=== PATIENT | female | born 1945 | race Caucasian/White ===

== ENCOUNTER 2019-10-17 14:15 | Inpatient (IN) | payer MEDICARE, MEDICAID ==
--- OUTSIDE RECORDS SUMMARY | 2019-10-17 14:32 | XMS REPORT | Continuity of Care Document ---
:1945 External Reference #:[id number] Author Name Abdi Irby D.O. Address [address] [place] [id number] Care Team Providers Name Role Phone HCP given Care Team Information [employer]ne[employer] Unavailable Problems Active Problems Provider Date Anxiety state Abdi Irby D.O. Onset: 01/20/2016 Recurrent major depressive episodes Abdi Irby D.O. Onset: 01/20/2016 Essential hypertension Abdi Irby D.O. Onset: 01/20/2016 Fibromyalgia Abdi Irby D.O. Onset: 01/20/2016 Vitamin D deficiency Abdi Irby D.O. Onset: 01/27/2016 Magnesium deficiency Abdi Irby D.O. Onset: 01/27/2016 Chronic rhinitis Abdi Irby D.O. Onset: 01/27/2016 Chronic allergic conjunctivitis Abdi Irby D.O. Onset: 04/28/2016 Chest pain Abdi Irby D.O. Onset: 06/30/2016 Pain in forearm Abdi Irby D.O. Onset: 10/01/2018 Social History Type Date Description Comments Sex Unknown ETOH Use Never used alcohol Recreational Drug Use Denies Drug Use Tobacco Use Start: Unknown Patient has never Excessive second smoked hand smoker in the past. Smoking Status Reviewed: 10/01/19 Patient has never Excessive second smoked hand smoker in the past. Exercise Type/Frequency Exercises rarely Sun Exposure Does not use sunscreen Seat Belt/Car Seat Seat Belt Use - Yes Allergies, Adverse Reactions, Alerts Active Allergies Reaction Severity Comments Date Tetracycline 01/20/2016 Medications Active Medications SIG Qnty Indications Ordering Date Provider Abilify take one tablet by 30tabs F33.9 Abdi Irby, 10/01/2019 2mg Tablets mouth at bedtime D.O. Multivitamin Adults 1 by mouth every Unknown 05/13/2019 day Tablets Duloxetine HCL 1 by mouth every 90caps Z00.01 Abdi Irby, 05/13/2019 30mg day in addition to D.O. Caps DR Ivey 60mg tab Aleve 1-3 tabs daily prn Unknown 05/12/2019 220mg Tablets [place] apply 1 application 45gm L71.9 Abdi Irby, 04/12/2019 0.75% Gel topically to D.O. affected area 2 times per day for rosacea Duloxetine HCL take one capsule by 90caps Abdi Irby, 04/25/2016 60mg mouth daily in D.O. Caps DR Ivey addition to 30mg History Medications Trazodone HCL take 1 tablet by 90tabs F33.9 Abdi Irby, 08/19/2019 - 50mg mouth daily at D.O. 09/18/2019 Tablets bedtime for trouble sleeping Abilify take one tablet 30tabs Abdi Irby, 07/19/2019 - 2mg Tablets by mouth at D.O. 08/18/2019 bedtime Mirtazapine 1 by mouth every 90tabs Abdi Irby, 06/17/2019 - 7.5mg night for sleep D.O. 07/19/2019 Tablets and anxiety Medications Administered in Office Medication SIG Qnty Indications Ordering Provider Date B12 Injection Abdi Irby D.O. 06/29/2018 Injection SC/Im Injections Abdi Irby D.OAysha 06/29/2018 Injection Immunizations CPT Code Status Date Vaccine Lot # [id number] Given 05/13/2019 Influenza Vaccine, Inactivated, Subunit, [id number] Adjuvanted, For Intrmusc 36351 Given 05/02/2018 Influenza Vaccine Split Virus Preservative Free Im [id number] Use (hi-dose) 44324 Given 06/22/2017 Influenza Virus Vaccine, Quadrivalent, Split, [id number] Preservative Free 43678 Given 08/16/2016 Influenza Virus Vaccine, Quadrivalent, Split, [id number] Preservative Free Vital Signs Date Vital Result Comment 10/01/2019 4:51pm BP Systolic 156 mmHg BP Diastolic 84 mmHg Weight 157.00 lb 09/19/2019 4:05pm BP Systolic 142 mmHg BP Diastolic 82 mmHg Height 63 inches 5'3" Weight 158.00 lb BMI (Body Mass Index) 28.0 kg/m2 Results Test Acquired Date Facility Test Result H/L Range Note Ua Inhouse 09/19/2019 In House Ua Glucose - 1 Ua Bilirubin - Ua Ketones - Ua Specific [place] 1.005 Ua Blood - Ua PH 6.0 Ua Protein - Ua Urobilinogen - Ua Nitrite - Ua Leukocytes - Urine Culture And 08/19/2019 [facility] Urine Culture SEE RESULT BELOW 2 Sensitivities [phone] Urine Micro Inhouse 08/19/2019 In House Ua WBC 0-2 3 Ua Specific [place] 1.005 Ua PH 5.0 Ua Leukocytes trace CBC Auto Diff 08/14/2019 [facility] White Blood 4.4 10^3/uL Normal 3.5-10.8 [phone] Count Red Blood Count 4.60 10^6/uL Normal 3.70-4.87 Hemoglobin 14.1 g/dL Normal 12.0-16.0 Hematocrit 41 % Normal 35-47 Mean Corpuscular Volume 89 fL Normal 80-97 Mean Corpuscular Hemoglobin 31 pg Normal 27-31 Mean Corpuscular HGB Conc 35 g/dL Normal 31-36 Red Cell Distribution Width 13 % Normal 10-15 Platelet Count 200 10^3/uL Normal 150-450 Mean Platelet Volume 8.0 fL Normal 7.4-10.4 Abs Neutrophils 2.8 10^3/uL Normal 1.5-7.7 Abs Lymphocytes 1.0 10^3/uL Normal 1.0-4.8 Abs Monocytes 0.4 10^3/uL Normal 0-0.8 Abs Eosinophils 0.1 10^3/uL Normal 0-0.6 Abs Basophils 0.0 10^3/uL Normal 0-0.2 Abs Nucleated RBC 0.0 10^3/uL Granulocyte % 63.9 % Lymphocyte % 23.5 % Monocyte % 9.0 % Eosinophil % 3.1 % Basophil % 0.5 % Nucleated Red Blood Cells % 0.2 Laboratory test 08/14/2019 [facility] TSH (Thyroid 2.34 mcIU/mL Normal 0.34-5.60 finding [phone] Stim Horm) Vitamin B12 414 pg/mL Normal 180-914 4 Vitamin D Total 25(Oh) 39.2 ng/mL Normal 20-50 5 Magnesium 1.9 mg/dL Normal 1.9-2.7 Erythrocyte Sed Rate 8 mm/Hr Normal 0-29 Folic Acid (Folate) > 20.00 ng/mL >3.99 Phosphorus 3.3 mg/dL Normal 2.5-5.0 C Reactive Protein 3.34 mg/L Normal <8.01 Comp Metabolic Panel 08/14/2019 [facility] Sodium 143 mmol/L Normal 135-145 [phone] Potassium 3.5 mmol/L Normal 3.5-5.0 Chloride 104 mmol/L Normal 101-111 Co2 Carbon Dioxide 32 mmol/L Normal 22-32 Anion Gap 7 mmol/L Normal 2-11 Glucose 97 mg/dL Normal 70-100 Blood Urea Nitrogen 6 mg/dL Normal 6-24 Creatinine 0.67 mg/dL Normal 0.51-0.95 BUN/Creatinine Ratio 9.0 Normal 8-20 Calcium 9.2 mg/dL Normal 8.6-10.3 Total Protein 6.3 g/dL Low 6.4-8.9 Albumin 4.0 g/dL Normal 3.2-5.2 Globulin 2.3 g/dL Normal 2-4 Albumin/Globulin Ratio 1.7 Normal 1-3 Total Bilirubin 0.60 mg/dL Normal 0.2-1.0 Alkaline Phosphatase 75 U/L Normal 34-104 Alt 13 U/L Normal 7-52 Ast 14 U/L Normal 13-39 Egfr Non- 86.8 >60 Egfr 105.0 >60 6 1 void, clear, yellow 2 SEE RESULT BELOW Name: LATISHALENIN Berger : [address]: Abdi Irby DO Acct: [id number] Unit: [id number] AGE: 73 Location: [facility] Re08/19/19 SEX: F Status: REG REF SPEC: [id number] ALEN: 08/19/19-[address]: Abdi Irby DO REQ: [id number] RECD: 08/20/19 STATUS: COMP _ SOURCE: URINE SPDESC: ORDERED: Urine Culture COMMENTS: [id number] Urine Source: Random Procedure Result Reported Site Urine Culture Final 08/21/19- 1422 ML No growth of clinically significant organisms * ML - Main Lab . END OF REPORT DEPARTMENT OF PATHOLOGY, [address] [place] [address] Nate Pablo M.D. Director [facility] # [id number] 3 voided clear light yellow 4 Normal Range 180 to 914 Indeterminate Range 145 to 180 Deficient Range <145 5 Total 25-Hydroxyvitamin D2 and D3 (25-OH-VitD) <10 ng/mL (severe deficiency) 10-19 ng/mL (mild to moderate deficiency) 20-50 ng/mL (optimum levels) 51-80 ng/mL (increased risk of hypercalciuria) >80 ng/mL (toxicity possible) 6 Because ethnic data is not always readily available, this report includes an eGFR for both -Americans and non- Americans. The National Kidney Disease Education Program (NKDEP) does not endorse the use of the MDRD equation for patients that are not between the ages of 18 and 70, are , have extremes of body size, muscle mass, or nutritional status, or are non- or non-. According to the National Kidney Foundation, irrespective of diagnosis, the stage of the disease is based on the level of kidney function: Stage Description GFR(mL/min/1.73 m(2)) 1 Kidney damage with normal or decreased GFR 90 2 Kidney damage with mild decrease in GFR 60-89 3 Moderate decrease in GFR 30-59 4 Severe decrease in GFR 15-29 5 Kidney failure <15 (or dialysis) Procedures Date Code Description Status 10/01/2019 67264 Electrocardiogram Complete Completed 05/14/2018 [id number] Mammogram Completed 08/28/2012 [id number] Colonoscopy Completed Medical Devices Description No Information Available Encounters Type Date Location Provider Dx Diagnosis Office Visit 10/01/2019 Main Office Abdi Irby D.O. R07.89 Other chest pain 4:00p F33.9 Major depressive disorder, recurrent, unspecified F41.9 Anxiety disorder, unspecified G90.09 Other idiopathic peripheral autonomic neuropathy R26.81 Unsteadiness on feet I10 Essential (primary) hypertension E55.9 Vitamin D deficiency, unspecified M79.7 Fibromyalgia R44.3 Hallucinations, unspecified R44.1 Visual hallucinations M79.631 Pain in right forearm Office Visit 09/19/2019 4:00p Main Office Abdi Irby, F33.9 Major depressive D.O. disorder, recurrent, unspecified F41.9 Anxiety disorder, unspecified G90.09 Other idiopathic peripheral autonomic neuropathy R26.81 Unsteadiness on feet I10 Essential (primary) hypertension Office Visit 08/19/2019 3:30p Main Office Abdi Irby, F33.9 Major depressive D.O. disorder, recurrent, unspecified F41.9 Anxiety disorder, unspecified G90.09 Other idiopathic peripheral autonomic neuropathy R26.81 Unsteadiness on feet I10 Essential (primary) hypertension E55.9 Vitamin D deficiency, unspecified M79.7 Fibromyalgia R44.3 Hallucinations, unspecified R44.1 Visual hallucinations Office Visit 07/19/2019 4:00p Main Office Abdi Irby, F33.9 Major depressive D.O. disorder, recurrent, unspecified F41.9 Anxiety disorder, unspecified G90.09 Other idiopathic peripheral autonomic neuropathy R26.81 Unsteadiness on feet I10 Essential (primary) hypertension E55.9 Vitamin D deficiency, unspecified M79.7 Fibromyalgia Z68.28 Body mass index (BMI) 28.0-28.9, adult Office Visit 06/17/2019 3:30p Main Office Abdi Irby, E55.9 Vitamin D D.O. deficiency, unspecified F33.9 Major depressive disorder, recurrent, unspecified F41.9 Anxiety disorder, unspecified G90.09 Other idiopathic peripheral autonomic neuropathy R26.81 Unsteadiness on feet I10 Essential (primary) hypertension M79.631 Pain in right forearm M79.642 Pain in left hand M79.602 Pain in left arm Office Visit 05/13/2019 11:00a Main Office Abdi Irby, E55.9 Vitamin D D.O. deficiency, unspecified F33.9 Major depressive disorder, recurrent, unspecified F41.9 Anxiety disorder, unspecified G90.09 Other idiopathic peripheral autonomic neuropathy M79.7 Fibromyalgia I10 Essential (primary) hypertension M79.631 Pain in right forearm Z00.01 Encounter for general adult medical exam w abnormal findings M79.601 Pain in right arm Z23 Encounter for immunization Office Visit 04/12/2019 10:30a Main Office [place] Abdi, E55.9 Vitamin D D.O. deficiency, unspecified F33.9 Major depressive disorder, recurrent, unspecified F41.9 Anxiety disorder, unspecified G90.09 Other idiopathic peripheral autonomic neuropathy M79.7 Fibromyalgia I10 Essential (primary) hypertension M79.631 Pain in right forearm M79.602 Pain in left arm M79.601 Pain in right arm L71.9 Rosacea, unspecified Assessments Date Code Description Provider 10/01/2019 R07.89 Other chest pain Sopchak, Abdi, D.O. 10/01/2019 F33.9 Major depressive disorder, recurrent, Sopchak, Abdi, D.O. unspecified 10/01/2019 F41.9 Anxiety disorder, unspecified Sopchak, Abdi, D.O. 10/01/2019 G90.09 Other idiopathic peripheral autonomic Sopchak, Abdi, D.O. neuropathy 10/01/2019 R26.81 Unsteadiness on feet Sopchak, Abdi, D.O. 10/01/2019 I10 Essential (primary) hypertension Sopchak, Abdi, D.O. 10/01/2019 E55.9 Vitamin D deficiency, unspecified Sopchak, Abdi, D.O. 10/01/2019 M79.7 Fibromyalgia Sopchak, Abdi, D.O. 10/01/2019 R44.3 Hallucinations, unspecified Sopchak, Abdi, D.O. 10/01/2019 R44.1 Visual hallucinations Sopchak, Abdi, D.O. 10/01/2019 M79.631 Pain in right forearm Sopchak, Abdi, D.O. 09/19/2019 F33.9 Major depressive disorder, recurrent, Sopchak, Abdi, D.O. unspecified 09/19/2019 F41.9 Anxiety disorder, unspecified Sopchak, Abdi, D.O. 09/19/2019 G90.09 Other idiopathic peripheral autonomic Sopchak, Abdi, D.O. neuropathy 09/19/2019 R26.81 Unsteadiness on feet Sopchak, Abdi, D.O. 09/19/2019 I10 Essential (primary) hypertension Sopchak, Abdi, D.O. 08/19/2019 F33.9 Major depressive disorder, recurrent, Sopchak, Abdi, D.O. unspecified 08/19/2019 F41.9 Anxiety disorder, unspecified Sopchak, Abdi, D.O. 08/19/2019 G90.09 Other idiopathic peripheral autonomic Sopchak, Abdi, D.O. neuropathy 08/19/2019 R26.81 Unsteadiness on feet Sopchak, Abdi, D.O. 08/19/2019 I10 Essential (primary) hypertension Sopchak, Abdi, D.O. 08/19/2019 E55.9 Vitamin D deficiency, unspecified Sopchak, Abdi, D.O. 08/19/2019 M79.7 Fibromyalgia Sopchak, Abdi, D.O. 08/19/2019 R44.3 Hallucinations, unspecified Sopchak, Abdi, D.O. 08/19/2019 R44.1 Visual hallucinations Sopchak, Abdi, D.O. 07/19/2019 F33.9 Major depressive disorder, recurrent, Sopchak, Abdi, D.O. unspecified 07/19/2019 F41.9 Anxiety disorder, unspecified Sopchak, Abdi, D.O. 07/19/2019 G90.09 Other idiopathic peripheral autonomic Sopchak, Abdi, D.O. neuropathy 07/19/2019 R26.81 Unsteadiness on feet Sopchak, Abdi, D.O. 07/19/2019 I10 Essential (primary) hypertension Sopchak, Abdi, D.O. 07/19/2019 E55.9 Vitamin D deficiency, unspecified Sopchak, Abdi, D.O. 07/19/2019 M79.7 Fibromyalgia Sopchak, Abdi, D.O. 07/19/2019 Z68.28 Body mass index (BMI) 28.0-28.9, adult Sopchak, Abdi, D.O. 06/17/2019 E55.9 Vitamin D deficiency, unspecified Sopchak, Abdi, D.O. 06/17/2019 F33.9 Major depressive disorder, recurrent, Sopchak, Abdi, D.O. unspecified 06/17/2019 F41.9 Anxiety disorder, unspecified Sopchak, Abdi, D.O. 06/17/2019 G90.09 Other idiopathic peripheral autonomic VelAbdi odom, D.O. neuropathy 06/17/2019 R26.81 Unsteadiness on feet Surekha Abdi, D.O. 06/17/2019 I10 Essential (primary) hypertension Surekha Abdi, D.O. 06/17/2019 M79.631 Pain in right forearm HolliekSonjaon, D.O. 06/17/2019 M79.642 Pain in left hand Sopzahid[place] Abdi, D.O. 06/17/2019 M79.602 Pain in left arm Sopzahid[place] Abdi, D.O. 05/13/2019 E55.9 Vitamin D deficiency, unspecified SopzahidakSonjaon, D.O. 05/13/2019 F33.9 Major depressive disorder, recurrent, SopzahidakSonjaon, D.O. unspecified 05/13/2019 F41.9 Anxiety disorder, unspecified SopzahidakSonjaon, D.O. 05/13/2019 G90.09 Other idiopathic peripheral autonomic Sopzahid[place], Abdi, D.O. neuropathy 05/13/2019 M79.7 Fibromyalgia VelileneAbdi, D.O. 05/13/2019 I10 Essential (primary) hypertension Surekha Abdi, D.O. 05/13/2019 M79.631 Pain in right forearm Surekha Abdi, D.O. 05/13/2019 Z00.01 Encounter for general adult medical Abdi Irby, D.O. examination with abnormal findings 05/13/2019 M79.601 Pain in right arm Holliek Abdi, D.O. 05/13/2019 Z23 Encounter for immunization Abdi Irby, D.O. 04/12/2019 E55.9 Vitamin D deficiency, unspecified SopzahidakSonjaon, D.O. 04/12/2019 F33.9 Major depressive disorder, recurrent, SopzahidakSonjaon, D.O. unspecified 04/12/2019 F41.9 Anxiety disorder, unspecified SopzahidakSonjaon, D.O. 04/12/2019 G90.09 Other idiopathic peripheral autonomic Sopchak, Abdi, D.O. neuropathy 04/12/2019 M79.7 Fibromyalgia Abdi Irby D.O. 04/12/2019 I10 Essential (primary) hypertension Abdi Irby D.O. 04/12/2019 M79.631 Pain in right forearm Abdi Irby D.O. 04/12/2019 M79.602 Pain in left arm Abdi Irby D.O. 04/12/2019 M79.601 Pain in right arm Abdi Irby D.O. 04/12/2019 L71.9 Rosacea, unspecified Abdi Irby D.O. Plan of Treatment Future Appointment(s):10/25/2019 11:00 am - Abdi Irby D.O. at Main [facility]08/19/2019 - Abdi Irby D.O.F33.9 Major depressive disorder, recurrent, unspecifiedNew Medication:Trazodone HCL 50 mg - take 1 tablet by mouth daily at bedtime for trouble sleepingFollow up:1 month xaehgzdbrbQ28.9 Anxiety disorder, adtxjirqvnuQ72.09 Other idiopathic peripheral autonomic bfaxvzdesgR81.81 Unsteadiness on feetI10 Essential (primary) ilfhtcrrrsfnY63.9 Vitamin D deficiency, iuqbmvjkcroU57.7 JguayenhtmifX12.3 Hallucinations, atztljylbouK33.1 Visual hallucinations Functional Status Description No Information Available Mental Status Description No Information Available Referrals Description No Information Available
--- OUTSIDE RECORDS SUMMARY | 2019-10-17 14:32 | XMS REPORT | Continuity of Care Document ---
:1945 External Reference #:[id number] Author Name Abdi Irby D.O. Address [address] [place] [id number] Care Team Providers Name Role Phone HCP given Care Team Information Carpenter/Labor Unavailable Problems Active Problems Provider Date Anxiety [...] smoker in the past. Smoking Status Reviewed: 09/19/19 Patient has never Excessive second smoked hand smoker in the past. Exercise Type/Frequency Exercises rarely Sun Exposure Does not use sunscreen Seat Belt/Car Seat Seat Belt Use - Yes Allergies, Adverse Reactions, Alerts Active Allergies Reaction Severity Comments Date Tetracycline 01/20/2016 Medications Active Medications SIG Qnty Indications Ordering Date Provider Multivitamin Adults 1 by mouth every Unknown [...] CPT Code Status Date Vaccine Lot # 73887 Given 05/13/2019 Influenza Vaccine, Inactivated, Subunit, [id number] [facility] Given 05/02/2018 Influenza Vaccine Split Virus Preservative Free Im [id number] Use (hi-dose) 10347 Given 06/22/2017 Influenza Virus Vaccine, Quadrivalent, Split, [id number] Preservative Free 58471 Given 08/16/2016 Influenza Virus Vaccine, Quadrivalent, Split, [id number] Preservative Free Vital Signs Date Vital Result Comment 09/19/2019 4:05pm BP Systolic 142 mmHg BP Diastolic 82 mmHg Height 63 inches 5'3" Weight 158.00 lb BMI (Body Mass Index) 28.0 kg/m2 08/19/2019 4:02pm BP Systolic 140 mmHg BP Diastolic 82 mmHg Weight 164.00 lb Results Test Acquired Date Facility Test Result H/L Range Note Ua Inhouse 09/19/2019 In House Ua Glucose - 1 Ua Bilirubin - Ua Ketones - Ua Specific [place] 1.005 Ua Blood - Ua PH 6.0 Ua Protein - Ua Urobilinogen - Ua Nitrite - Ua Leukocytes - Urine Culture And 08/19/2019 [facility] Urine Culture SEE RESULT BELOW 2 Sensitivities [phone] Urine Micro Inhouse 08/19/2019 In House Ua WBC 0-2 3 Ua Specific [place] 1.005 Ua PH 5.0 Ua Leukocytes trace CBC Auto Diff 08/14/2019 [facility] White Blood 4.4 10^3/uL Normal 3.5-10.8 [phone] Count Red Blood Count 4.60 10^6/uL Normal [...] Blood Cells % 0.2 Laboratory test 08/14/2019 [facility] TSH (Thyroid 2.34 mcIU/mL Normal 0.34-5.60 finding [phone] Stim Horm) Vitamin B12 414 pg/mL Normal 180-914 4 Vitamin D Total 25(Oh) 39.2 ng/mL Normal 20-50 5 Magnesium 1.9 mg/dL Normal 1.9-2.7 Erythrocyte Sed Rate 8 mm/Hr Normal 0-29 Folic Acid (Folate) > 20.00 ng/mL >3.99 Phosphorus 3.3 mg/dL Normal 2.5-5.0 C Reactive Protein 3.34 mg/L Normal <8.01 Comp Metabolic Panel 08/14/2019 [facility] Sodium 143 mmol/L Normal 135-145 [phone] Potassium 3.5 mmol/L Normal 3.5-5.0 Chloride 104 [...] clear, yellow 2 SEE RESULT BELOW Name: LENIN LARA : [address]: Abdi Irby DO Acct: [id number] Unit: [id number] AGE: 73 Location: [facility] Re08/19/19 SEX: F Status: REG REF SPEC: [id number] ALEN: 08/19/19-[address]: Abdi Irby DO REQ: [id number] RECD: 08/20/19 STATUS: COMP _ SOURCE: URINE SPDESC: ORDERED: Urine Culture COMMENTS: [id number] Urine Source: Random Procedure Result Reported Site Urine Culture Final 08/21/19- 1422 ML No growth of clinically significant organisms * ML - Main Lab . END OF REPORT DEPARTMENT OF PATHOLOGY, [address] [place] [address] Nate Pablo M.D. Director [facility] # [id number] 3 voided clear light yellow 4 Normal [...] (or dialysis) Procedures Date Code Description Status 05/14/2018 [id number] Mammogram Completed 08/28/2012 [id number] Colonoscopy Completed Medical Devices Description No Information Available Encounters Type Date Location Provider Dx Diagnosis Office Visit 09/19/2019 Main Office Abdi Irby, F33.9 Major depressive 4:00p D.O. disorder, recurrent, unspecified F41.9 Anxiety disorder, unspecified G90.09 Other idiopathic peripheral autonomic neuropathy R26.81 Unsteadiness on feet I10 Essential (primary) hypertension E55.9 Vitamin D deficiency, unspecified M79.7 Fibromyalgia R44.3 Hallucinations, unspecified R44.1 Visual hallucinations M79.631 Pain in right forearm M79.642 Pain in left hand M79.602 Pain in left arm M79.601 Pain in right arm Z68.28 Body mass index (BMI) 28.0-28.9, adult R35.0 Frequency of micturition Office Visit 08/19/2019 3:30p Main Office Abdi [...] immunization Office Visit 04/12/2019 10:30a Main Office Abdi Irby, E55.9 Vitamin D D.O. deficiency, unspecified F33.9 Major depressive disorder, recurrent, unspecified F41.9 Anxiety disorder, unspecified G90.09 Other idiopathic peripheral autonomic neuropathy M79.7 Fibromyalgia I10 Essential (primary) hypertension M79.631 Pain in right forearm M79.602 Pain in left arm M79.601 Pain in right arm L71.9 Rosacea, unspecified Assessments Date Code Description Provider 09/19/2019 F33.9 Major depressive disorder, recurrent, SopSonja odomon, D.O. unspecified 09/19/2019 F41.9 Anxiety disorder, unspecified Sopchak, Abdi, D.O. 09/19/2019 G90.09 Other idiopathic peripheral autonomic HolliekSonjaon, D.O. neuropathy 09/19/2019 R26.81 Unsteadiness on feet SopzahidakSonjaon, D.O. 09/19/2019 I10 Essential (primary) hypertension Sonja Irbyon, D.O. 09/19/2019 E55.9 Vitamin D deficiency, unspecified Sopzahidak, Abdi, D.O. 09/19/2019 M79.7 Fibromyalgia Holliek, Abdi, D.O. 09/19/2019 R44.3 Hallucinations, unspecified Sopzahidak, Abdi, D.O. 09/19/2019 R44.1 Visual hallucinations Sopchak, Abdi, D.O. 09/19/2019 M79.631 Pain in right forearm Sopzahidak, Abdi, D.O. 09/19/2019 M79.642 Pain in left hand Sopzahidak, Abdi, D.O. 09/19/2019 M79.602 Pain in left arm Sopzahidak, Abdi, D.O. 09/19/2019 M79.601 Pain in right arm Holliek, Abdi, D.O. 09/19/2019 Z68.28 Body mass index (BMI) 28.0-28.9, adult Sopzahidak, Abdi, D.O. 09/19/2019 R35.0 Frequency of micturition Sonja Irbyon, D.O. 08/19/2019 F33.9 Major depressive disorder, recurrent, SopzahidakSonjaon, D.O. unspecified 08/19/2019 F41.9 Anxiety disorder, unspecified Sopzahidak, Abdi, D.O. 08/19/2019 G90.09 Other idiopathic peripheral autonomic Sonja Irbyon, D.O. neuropathy 08/19/2019 R26.81 Unsteadiness on feet Sopchak, Abdi, D.O. 08/19/2019 I10 Essential (primary) hypertension Sopchak, Abdi, D.O. 08/19/2019 E55.9 Vitamin D deficiency, unspecified Sopchak, Abdi, D.O. 08/19/2019 M79.7 Fibromyalgia Sopchak, Abdi, D.O. 08/19/2019 R44.3 Hallucinations, unspecified Sopchak, Badi, D.O. 08/19/2019 R44.1 Visual hallucinations Sopchak, Abdi, [...] D.O. 06/17/2019 G90.09 Other idiopathic peripheral autonomic Sopchak, Abdi, D.O. neuropathy 06/17/2019 R26.81 Unsteadiness on feet Sopchak, Abdi, D.O. 06/17/2019 I10 Essential (primary) hypertension Sopchak, Abdi, D.O. 06/17/2019 M79.631 Pain in right forearm Abdi Irby, D.O. 06/17/2019 M79.642 Pain in left hand Abdi Irby, D.O. 06/17/2019 M79.602 Pain in left arm Abdi Irby, D.O. 05/13/2019 E55.9 Vitamin D deficiency, unspecified Surekha Abdi, D.O. 05/13/2019 F33.9 Major depressive disorder, recurrent, Sonja Irbyon, D.O. unspecified 05/13/2019 F41.9 Anxiety disorder, unspecified SurekhaSonjaon, D.O. 05/13/2019 G90.09 Other idiopathic peripheral autonomic SurekhaAbdi, D.O. neuropathy 05/13/2019 M79.7 Fibromyalgia Surekha Abdi, D.O. 05/13/2019 I10 Essential (primary) hypertension SurekhaAbdi, D.O. 05/13/2019 M79.631 Pain in right forearm Abdi Irby, D.O. 05/13/2019 Z00.01 Encounter for general adult medical Surekha Abdi D.O. examination with abnormal findings 05/13/2019 M79.601 Pain in right arm Abdi Irby D.O. 05/13/2019 Z23 Encounter for immunization Sonja Irbyon, D.O. 04/12/2019 E55.9 Vitamin D deficiency, unspecified SurekhaAbdi, D.O. 04/12/2019 F33.9 Major depressive disorder, recurrent, Abdi Irby, D.O. unspecified 04/12/2019 F41.9 Anxiety disorder, unspecified Surekha Abdi, D.O. 04/12/2019 G90.09 Other idiopathic peripheral autonomic Surekha Abdi, D.O. neuropathy 04/12/2019 M79.7 Fibromyalgia Abdi Irby, D.O. 04/12/2019 I10 Essential (primary) hypertension Surekha Abdi, D.O. 04/12/2019 M79.631 Pain in right forearm Surekha Abdi, D.O. 04/12/2019 M79.602 Pain in left arm Abdi Irby D.O. 04/12/2019 M79.601 Pain in right arm Abdi Irby D.O. 04/12/2019 L71.9 Rosacea, unspecified Abdi Irby D.O. Plan of Treatment Future Appointment(s):10/25/2019 11:00 am - Abdi Irby D.O. at Main Dewcsr9208/19/2019 - Abdi Irby D.O.F33.9 Major depressive disorder, recurrent, unspecifiedNew Medication:Trazodone HCL 50 mg - take 1 tablet by mouth daily at bedtime for trouble sleepingFollow up:1 month uywufodtukI75.9 Anxiety disorder, elvtzdiwcdgN79.09 Other idiopathic peripheral autonomic acxxckvblvI58.81 Unsteadiness on feetI10 Essential (primary) lvvbgkrvjoidY64.9 Vitamin D deficiency, giddwdfqhmbS82.7 YcdntjeetneoE72.3 Hallucinations, mxgframtcycI97.1 Visual hallucinations Functional Status Description No Information Available Mental Status Description No Information Available Referrals Description No Information Available
--- OUTSIDE RECORDS SUMMARY | 2019-10-17 14:32 | XMS REPORT | Continuity of Care Document ---
:1945 External Reference #:[id number] Author Name Abdi Irby D.O. 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 Problems Provider Date Anxiety [...] Ordering Provider Date B12 Injection Abdi Irby D.OAysha 06/29/2018 Injection SC/Im Injections Abdi Irby D.OAysha 06/29/2018 Injection Immunizations CPT Code Status Date Vaccine Lot # 12466 Given 05/13/2019 Influenza Vaccine, Inactivated, Subunit, [id number] [facility], [facility] Given 05/02/2018 Influenza Vaccine Split Virus Preservative Free Im [id number] Use (hi-dose) 30236 Given 06/22/2017 Influenza Virus Vaccine, Quadrivalent, Split, [id number] Preservative Free 57549 Given 08/16/2016 Influenza Virus Vaccine, Quadrivalent, Split, [...] Bilirubin - Ua Ketones - Ua Specific [place] 1.005 Ua Blood - Ua PH 6.0 Ua Protein - Ua Urobilinogen - Ua Nitrite - Ua Leukocytes - Urine Culture And 08/19/2019 [facility] Urine Culture SEE RESULT BELOW 2 Sensitivities [phone] Urine Micro Inhouse 08/19/2019 In House Ua WBC 0-2 3 Ua Specific [place] 1.005 Ua PH 5.0 Ua Leukocytes trace CBC Auto Diff 08/14/2019 [facility] White Blood 4.4 10^3/uL Normal 3.5-10.8 [phone] Count Red Blood Count 4.60 10^6/uL Normal [...] Blood Cells % 0.2 Laboratory test 08/14/2019 [facility] TSH (Thyroid 2.34 mcIU/mL Normal 0.34-5.60 finding [phone] Stim Horm) Vitamin B12 414 pg/mL Normal 180-914 4 Vitamin D Total 25(Oh) 39.2 ng/mL Normal 20-50 5 Magnesium 1.9 mg/dL Normal 1.9-2.7 Erythrocyte Sed Rate 8 mm/Hr Normal 0-29 Folic Acid (Folate) > 20.00 ng/mL >3.99 Phosphorus 3.3 mg/dL Normal 2.5-5.0 C Reactive Protein 3.34 mg/L Normal <8.01 Comp Metabolic Panel 08/14/2019 [facility] Sodium 143 mmol/L Normal 135-145 [phone] Potassium 3.5 mmol/L Normal 3.5-5.0 Chloride 104 [...] clear, yellow 2 SEE RESULT BELOW Name: LARALENIN : [address]: Abdi Irby DO Acct: [id number] Unit: [id number] AGE: 73 Location: [facility] Re08/19/19 SEX: F Status: REG REF SPEC: [id number] ALEN: 08/19/[address]: Abdi Irby DO REQ: [id number] RECD: 08/20/19 STATUS: COMP _ SOURCE: URINE SPDESC: ORDERED: Urine Culture COMMENTS: [id number] Urine Source: Random Procedure Result Reported Site Urine Culture Final 08/21/19- 1422 ML No growth of clinically significant organisms * ML - Main Lab . END OF REPORT DEPARTMENT OF PATHOLOGY, [address] [place] [address] Nate Pablo M.D. Director [facility] # [id number] 3 voided clear light yellow 4 Normal [...] dialysis) Procedures Date Code Description Status 05/14/2018 [id number] Mammogram Completed 08/28/2012 [id number] Colonoscopy Completed Medical Devices Description No Information [...] Provider 09/19/2019 F33.9 Major depressive disorder, recurrent, Abdi Irby, D.O. unspecified 09/19/2019 F41.9 Anxiety disorder, unspecified [...] D.O. 06/17/2019 E55.9 Vitamin D deficiency, unspecified SopzahidakSonjaon, D.O. 06/17/2019 F33.9 Major depressive disorder, recurrent, SopSonja odomon, D.O. unspecified 06/17/2019 F41.9 Anxiety disorder, unspecified SopzahidakSonjaon, D.O. 06/17/2019 G90.09 Other idiopathic peripheral autonomic Abdi Irby, D.O. neuropathy 06/17/2019 R26.81 Unsteadiness on feet SopzahidakSonjaon, D.O. 06/17/2019 I10 Essential (primary) hypertension Sonja Irbyon, D.O. 06/17/2019 M79.631 Pain in right forearm Sonja Irbyon, D.O. 06/17/2019 M79.642 Pain in left hand Sonja Irbyon, D.O. 06/17/2019 M79.602 Pain in left arm SopSonja odomon, D.O. 05/13/2019 E55.9 Vitamin D deficiency, unspecified SopzahidakSonjaon, D.O. 05/13/2019 F33.9 Major depressive disorder, recurrent, Abdi Irby, D.O. unspecified 05/13/2019 F41.9 Anxiety disorder, unspecified SopzahidakSonjaon, D.O. 05/13/2019 G90.09 Other idiopathic peripheral autonomic Abdi Irby, D.O. neuropathy 05/13/2019 M79.7 Fibromyalgia Abdi Irby, D.O. 05/13/2019 I10 Essential (primary) hypertension VelzahidaSonja vargheseon, D.O. 05/13/2019 M79.631 Pain in right forearm VelzahidakSonjaon, D.O. 05/13/2019 Z00.01 Encounter for general adult medical Abdi Irby, D.O. examination with abnormal findings 05/13/2019 M79.601 Pain in right arm Abdi Irby, D.O. 05/13/2019 Z23 Encounter for immunization Abdi Irby, D.O. 04/12/2019 E55.9 Vitamin D deficiency, unspecified Sopchak, Abdi, D.OAysha 04/12/2019 F33.9 Major depressive disorder, recurrent, Abdi Irby D.O. unspecified 04/12/2019 F41.9 Anxiety disorder, unspecified Abdi Irby D.O. 04/12/2019 G90.09 Other idiopathic peripheral autonomic Abdi Irby D.O. neuropathy 04/12/2019 M79.7 Fibromyalgia Abdi Irby D.OAysha 04/12/2019 I10 Essential (primary) hypertension Abdi Irby D.OAysha 04/12/2019 M79.631 Pain in right forearm Abdi Irby D.O. 04/12/2019 M79.602 Pain in left arm Abdi Irby D.OAysha 04/12/2019 M79.601 Pain in right arm Abdi Irby D.OAysha 04/12/2019 L71.9 Rosacea, unspecified Abdi Irby D.O. Plan of Treatment Future Appointment(s):10/17/2019 2:45 pm - Abdi Irby D.O. at Main Wcvvzh4010/25/2019 11:00 am - Abdi Irby D.O. at Main Hxasjb7008/19/2019 - Abdi Irby D.OAyshaF33.9 Major depressive disorder, recurrent, unspecifiedNew Medication:Trazodone HCL 50 mg - take 1 tablet by mouth daily at bedtime for trouble sleepingFollow up:1 month hwlrgntinpG30.9 Anxiety disorder, keuqrhzfhkwO60.09 Other idiopathic peripheral autonomic qseaaudqmtV52.81 Unsteadiness on feetI10 Essential (primary) pletyressuagV69.9 Vitamin D deficiency, msutfktlrohT11.7 LgjrqmemsshcX80.3 Hallucinations, nqgoezrxluqO04.1 Visual hallucinations Functional Status Description No Information Available Mental Status Description No Information Available Referrals Description No Information Available
--- OUTSIDE RECORDS SUMMARY | 2019-10-17 14:32 | XMS REPORT | Continuity of Care Document ---
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 Problems Active Problems Provider Date Anxiety [...] CPT Code Status Date Vaccine Lot # 33086 Given 05/13/2019 Influenza Vaccine, Inactivated, Subunit, [id number] Adjuvanted, For [facility] 73917 Given 05/02/2018 Influenza Vaccine Split Virus Preservative Free Im [id number] Use (hi-dose) 52830 Given 06/22/2017 Influenza Virus Vaccine, Quadrivalent, Split, [id number] Preservative Free 64620 Given 08/16/2016 Influenza Virus Vaccine, Quadrivalent, Split, [...] Bilirubin - Ua Ketones - Ua Specific [place] 1.005 Ua Blood - Ua PH 6.0 Ua Protein - Ua Urobilinogen - Ua Nitrite - Ua Leukocytes - Urine Culture And 08/19/2019 [facility] Urine Culture SEE RESULT BELOW 2 Sensitivities [phone] Urine Micro Inhouse 08/19/2019 In House Ua WBC 0-2 3 Ua Specific [place] 1.005 Ua PH 5.0 Ua Leukocytes trace CBC Auto Diff 08/14/2019 [facility] White Blood 4.4 10^3/uL Normal 3.5-10.8 [phone] Count Red Blood Count 4.60 10^6/uL Normal [...] Blood Cells % 0.2 Laboratory test 08/14/2019 [facility] TSH (Thyroid 2.34 mcIU/mL Normal 0.34-5.60 finding [phone] Stim Horm) Vitamin B12 414 pg/mL Normal 180-914 4 Vitamin D Total 25(Oh) 39.2 ng/mL Normal 20-50 5 Magnesium 1.9 mg/dL Normal 1.9-2.7 Erythrocyte Sed Rate 8 mm/Hr Normal 0-29 Folic Acid (Folate) > 20.00 ng/mL >3.99 Phosphorus 3.3 mg/dL Normal 2.5-5.0 C Reactive Protein 3.34 mg/L Normal <8.01 Comp Metabolic Panel 08/14/2019 [facility] Sodium 143 mmol/L Normal 135-145 [phone] Potassium 3.5 mmol/L Normal 3.5-5.0 Chloride 104 [...] yellow 2 SEE RESULT BELOW Name: LARALENIN L : [address]: Abdi Irby DO Acct: [id number] Unit: [id number] AGE: 73 Location: [facility] Re08/19/19 SEX: F Status: REG REF SPEC: [id number] ALEN: 08/19/19-[address]: Abdi Irby DO REQ: [id number] RECD: 08/20/19 STATUS: COMP _ SOURCE: URINE SPDESC: ORDERED: Urine Culture COMMENTS: [id number] Urine Source: Random Procedure Result Reported Site Urine Culture Final 08/21/19- 1422 ML No growth of clinically significant organisms * ML - Main Lab . END OF REPORT DEPARTMENT OF PATHOLOGY, [address] [place] [address] Nate Pablo M.D. Director [facility] # [id number] 3 voided clear light yellow 4 Normal [...] dialysis) Procedures Date Code Description Status 10/01/2019 26014 Electrocardiogram Complete Completed 05/14/2018 [id number] Mammogram Completed 08/28/2012 [id number] Colonoscopy Completed Medical Devices Description No Information Available Encounters Type Date Location Provider Dx Diagnosis Office Visit 10/01/2019 Main Office Abdi Irby D.Adela R07.89 Other chest pain 4:00p F33.9 Major depressive disorder, recurrent, unspecified F41.9 Anxiety disorder, unspecified G90.09 Other idiopathic peripheral autonomic neuropathy R26.81 Unsteadiness on feet I10 Essential (primary) hypertension E55.9 Vitamin D deficiency, unspecified M79.7 Fibromyalgia R44.3 Hallucinations, unspecified R44.1 Visual hallucinations M79.631 Pain in right forearm Office Visit 09/19/2019 4:00p Main Office Abdi Irby F33.9 Major depressive D.O. disorder, recurrent, unspecified [...] Sopchak, Abdi, D.O. 08/19/2019 M79.7 Fibromyalgia Sopchak, Badi, D.O. 08/19/2019 R44.3 Hallucinations, unspecified Sopchak, Abdi, [...] 07/19/2019 E55.9 Vitamin D deficiency, unspecified Sopchak, Abid, D.O. 07/19/2019 M79.7 Fibromyalgia Sopchak, Abdi, D.O. 07/19/2019 Z68.28 Body mass index (BMI) 28.0-28.9, adult Sopchak, Abid, D.O. 06/17/2019 E55.9 Vitamin D deficiency, unspecified Sopchak, Abdi, D.O. 06/17/2019 F33.9 Major depressive disorder, recurrent, Sopchak, Abdi, D.O. unspecified 06/17/2019 F41.9 Anxiety disorder, unspecified Sopchak, Abdi, D.O. 06/17/2019 G90.09 Other idiopathic peripheral autonomic Abdi Irby, D.O. neuropathy 06/17/2019 R26.81 Unsteadiness on feet Surekha Abdi, D.O. 06/17/2019 I10 Essential (primary) hypertension Surekha Abdi, D.O. 06/17/2019 M79.631 Pain in right forearm SurekhaSonajon, D.O. 06/17/2019 M79.642 Pain in left hand Sopzahidak Abdi, D.O. 06/17/2019 M79.602 Pain in left arm Sopzahidak Abdi, D.O. 05/13/2019 E55.9 Vitamin D deficiency, unspecified VelzahidakSonjaon, D.O. 05/13/2019 F33.9 Major depressive disorder, recurrent, VelAbdi odom, D.O. unspecified 05/13/2019 F41.9 Anxiety disorder, unspecified Sonja Irbyon, D.O. 05/13/2019 G90.09 Other idiopathic peripheral autonomic Abdi Irby, D.O. neuropathy 05/13/2019 M79.7 Fibromyalgia SurekhaSonjaon, D.O. 05/13/2019 I10 Essential (primary) hypertension Surekha Abdi, D.O. 05/13/2019 M79.631 Pain in right forearm Surekha Abdi, D.O. 05/13/2019 Z00.01 Encounter for general adult medical Abdi Irby D.O. examination with abnormal findings 05/13/2019 M79.601 Pain in right arm SurekhaAbdi, D.O. 05/13/2019 Z23 Encounter for immunization Abdi Irby, D.O. 04/12/2019 E55.9 Vitamin D deficiency, unspecified SopzahidakSonjaon, D.O. 04/12/2019 F33.9 Major depressive disorder, recurrent, SopAbdi odom, D.O. unspecified 04/12/2019 F41.9 Anxiety disorder, unspecified SopzahidakSonjaon, D.O. 04/12/2019 G90.09 Other idiopathic peripheral autonomic HolliekAbdi, D.O. neuropathy 04/12/2019 M79.7 Fibromyalgia Sopchak, Abdi, D.O. 04/12/2019 I10 Essential (primary) hypertension Abdi Irby D.O. 04/12/2019 M79.631 Pain in right forearm Abdi Irby D.O. 04/12/2019 M79.602 Pain in left arm Abdi Irby D.O. 04/12/2019 M79.601 Pain in right arm Abdi Irby D.O. 04/12/2019 L71.9 Rosacea, unspecified Abdi Irby D.O. Plan of Treatment Future Appointment(s):10/25/2019 11:00 am - Abdi Irby D.O. at Main Xhuwjf1808/19/2019 - Abdi Irby D.O.F33.9 Major depressive disorder, recurrent, unspecifiedNew Medication:Trazodone HCL 50 mg - take 1 tablet by mouth daily at bedtime for trouble sleepingFollow up:1 month yfmvdtcupyK14.9 Anxiety disorder, xwtfiutaikjE79.09 Other idiopathic peripheral autonomic kvovsapvluW70.81 Unsteadiness on feetI10 Essential (primary) rqqzddelxasaQ62.9 Vitamin D deficiency, nblxedtlldnE41.7 GzzopuemvzxxN69.3 Hallucinations, chxkvlpuxssF49.1 Visual hallucinations Functional Status Description No Information Available Mental Status Description No Information Available Referrals Description No Information Available
--- NOTE | 2019-10-17 15:32 | ED ---
Complex/Multi-Sys Presentation - HPI Summary HPI Summary: 73 year old F presenting to [facility] accompanied by her daughter with a chief complaint of hallucinations since around July,, worse since recently. The patient rates the pain 0/10 in severity. Symptoms aggravated by nothing. Symptoms alleviated by nothing. Per her daughter the patient packed her bags and does not remember doing so, has had difficulty with her memory, has had hallucinations, and is scared all of the time. Patient reports vomiting on arrival and that she remembers standing outside but does not remember packing her bags. Patient denies any alcohol use or thoughts of harming herself. She was seen by her PCP previously for her symptoms. The patient lives alone and reports that she does not like to be alone. The patient has a history of mental health problems in the past and was previously hospitalized. The patient has a history of fibromyalgia. Medication list reviewed. Allergy list reviewed. Home Medications Medication Instructions Recorded Confirmed Type Bisoprolol & Hydrochlorothiazi 1 DAILY 01/16/13 01/16/[address] BEAUCHAMP* [Cymbalta CAP*] 60 mg PO DAILY 01/16/13 01/16/13 History Gabapentin* [Neurontin*] 300 mg PO TID 01/16/13 01/16/13 History LoraTADine TAB(NF) [Claritin TAB*] 10 mg PO DAILY 01/16/13 01/16/13 History Lovastatin 40 mg PO DAILY 01/16/13 01/16/13 History Ranitidine HCl 150 mg PO BID 01/16/13 01/16/13 History - History Of Current Complaint Chief Complaint: EDPsychosocial Time Seen by Provider: 10/17/19 15:13 Hx Obtained From: Patient, Family/Pcts - Daughter Onset/Duration: Lasting Weeks, Still Present Timing: Intermittent, Lasting: Severity Currently: None Aggravating Factor(s): None Alleviating Factor(s): None Associated Signs And Symptoms: Positive: Confusion, Vomiting - Allergies/Home Medications Allergies/Adverse Reactions: Allergies Allergy/AdvReac Type Severity Reaction Status Date / Time Iodinated Contrast Media Allergy Unknown Verified 10/17/19 14:24 Reaction Details Tetracyclines Allergy Unknown Verified 10/17/19 14:24 Reaction Details Home Medications: Home Medications ARIPiprazole TAB* [Abilify 2 MG TAB*] 2 mg PO BEDTIME 10/17/19 [History Confirmed 10/17/19] DULoxetine CAP* [Cymbalta CAP*] 30 mg PO DAILY 10/17/19 [History Confirmed ] DULoxetine CAP* [Cymbalta CAP*] 60 mg PO DAILY 10/17/19 [History Confirmed ] Multivitamins/Minerals TAB* [Theragran/minerals TAB*] 1 tab PO DAILY 10/17/19 [ History Confirmed 10/17/19] Naproxen Sodium [Aleve] 220 - 660 mg PO DAILY PRN 10/17/19 [History Confirmed ] traZODone TAB* [Desyrel TAB*] 50 mg PO BEDTIME PRN 10/17/19 [History Confirmed 10/17/19] PMH/Surg Hx/FS Hx/Imm Hx Respiratory History: Reports: Hx Seasonal Allergies - Severe environmental allergies GI History: Reports: Other GI Disorders - inguinal hernia repair Musculoskeletal History: Reports: Hx Fibromyalgia Psychiatric History: Reports: Hx Attention Deficit Hyperactivity Disorder - Cancer History Hx Chemotherapy: No Hx Radiation Therapy: No - Surgical History Surgery Procedure, Year, and Place: Left foot surgery, tonsillectomy, inguinal hernia repair/TUBIAL LIGATION Infectious Disease History: No Infectious Disease History: Denies: Traveled Outside the [place] in Last 30 Days - Social History Lives: Alone Alcohol Use: None Substance Use Type: Reports: None Review of Systems Positive: Vomiting Neurological/Mental Status: Negative - Thoughts of harming herself, Other - Hallucinations; memory deficit Positive: Other - Fear All Other Systems Reviewed And Are Negative: Yes Physical Exam - Summary Physical Exam Summary: Constitutional: Well-developed, Well-nourished, Alert. (-) Distressed; Skin: Warm, Dry HENT: Normocephalic; Atraumatic Eyes: Conjunctiva normal Neck: Musculoskeletal ROM normal neck. (-) JVD, (-) Stridor, (-) Tracheal deviation Cardio: Rhythm regular, rate normal, Heart sounds normal; Intact distal pulses; Radial pulses are 2+ and symmetric. (-) Murmur Pulmonary/Chest wall: Effort normal. (-) Respiratory distress, (-) Wheezes, (-) Rales Abd: Soft, (-) tenderness, (-) Distension, (-) Guarding, (-) Rebound Musculoskeletal: (-) Edema Lymph: (-) Cervical adenopathy Neuro: Alert, Oriented x3; loses her train of thought; makes nonsensical statements periodically. Psych: Tearful when she speaks Triage Information Reviewed: Yes Vital Signs On Initial Exam: Initial Vitals Temp Pulse Resp BP Pulse Ox 97.1 F 95 18 176/93 98 10/17/19 14:17 10/17/19 14:17 10/17/19 14:17 10/17/19 14:17 10/17/19 14:17 Vital Signs Reviewed: Yes Procedures - Sedation Patient Received Moderate/Deep Sedation with Procedure: No Diagnostics - Vital Signs Vital Signs Temp Pulse Resp BP Pulse Ox 10/17/19 14:17 97.1 F 95 18 176/93 98 - Laboratory Result Diagrams: 10/17/19 15:46 10/17/19 15:46 Lab Statement: Any lab studies that have been ordered have been reviewed, and results considered in the medical decision making process. - EKG 15:40 Cardiac Rate: NL - 92 BPM EKG Rhythm: Sinus Rhythm Summary of EKG Findings: Q-Waves inferior leads; no obvious acute ischemic changes. ED physician has reviewed and interpreted this EKG. Complex Multi-Symp Course/Dx Course Of Treatment: Patient is here with worsening hallucinations. Patient is receiving diagnosed dementia although that diagnosis is not confirmed per the daughter. Patient has had worsening hallucinations and dementia type symptoms. Patient does live by herself and has had some circumstances were she has not been safe. Patient was seen by myself for a workup was performed which was grossly unremarkable. Given patient's unsafe living situation, social work case manager was called and they recommended admission to the hospital. - Diagnoses Provider Diagnoses: Hallucinations, Dementia, Delirium - Physician Notifications Discussed Care Of Patient With: Rafael Ferraro Time Discussed With Above Provider: 17:17 Instructed by Provider To: Other - Patient's case was discussed with Dr. Ferraro, Dr. Ferraro accepts for admission Discharge ED - Sign-Out/Discharge Documenting (check all that apply): Patient Departure - Discharge Plan Condition: Stable Disposition: ADMITTED TO [facility] - Billing Disposition and Condition Condition: STABLE Disposition: Admitted to [facility] - Attestation Statements Document Initiated by Scribe: Yes Documenting Scribe: Anastacia Frausto and Ketan Morton Provider For Whom Scribe is Documenting (Include Credential): MD Lesli Brewer Attestation: I, Anastacia Frausto and Ketan Morton, scribed for Ryan Howard MD on at [id number]. Scribe Documentation Reviewed: Yes Provider Attestation: The documentation as recorded by the scribe, Anastacia Frausto and Ketan Morton accurately reflects the service I personally performed and the decisions made by me, Ryan Howard MD Status of Scribe Document: Viewed
[2019-10-17 15:53] LABS: ABS Eosinophils 0.1 10^3/ul (0-0.6); ABS Lymphocytes 1.1 10^3/ul (1.0-4.8); ABS Monocytes 0.4 10^3/ul (0-0.8); Eosinophil % 1.5 %; Hematocrit 39 % (35-47); Hemoglobin 13.4 g/dL (12.0-16.0); Lymphocyte % 24.5 %; Mean Corpuscular HGB Conc 34 g/dL (31-36); Mean Corpuscular Hemoglobin 31 pg (27-31); Mean Corpuscular Volume 89 fL (80-97); Mean Platelet Volume 7.4 fL (7.4-10.4); Nucleated Red Blood Cells % 0.1; Platelet Count 185 10^3/uL (150-450); Red Cell Distribution Width 13 % (10-15); White Blood Count 4.6 10^3/uL (3.5-10.8)
[2019-10-17 16:19] LABS: ALT 15 U/L (7-52); AST 14 U/L (13-39); Albumin 3.9 g/dL (3.2-5.2); Albumin/Globulin Ratio 1.7 (1-3); Alkaline Phosphatase 72 U/L (34-104); Anion Gap 7 mmol/L (2-11); BUN/Creatinine Ratio 15.6 (8-20); Blood Urea Nitrogen 10 mg/dL (6-24); CO2 Carbon Dioxide 28 mmol/L (22-32); Chloride 106 mmol/L (101-111); EGFR African American 110.7 (>60); EGFR Non-African American 91.5 (>60); Globulin 2.3 g/dL (2-4); Glucose 143 mg/dL (70-100); Potassium 3.6 mmol/L (3.5-5.0); Sodium 141 mmol/L (135-145); Total Protein 6.2 g/dL (6.4-8.9)
[2019-10-17 16:39] LABS: Alcohol < 10 mg/dL (<10); Salicylate < 2.50 mg/dL (<30)
[2019-10-17 16:54] LABS: TSH (Thyroid Stimulating Horm) 1.22 mcIU/mL (0.34-5.60)
[2019-10-17] MEDS ORDERED: Enoxaparin(*) 40 MG/0.4 ML SYR SUBCUT SCH (18:00)
[2019-10-17 18:11] LABS: Urine Appearance Clear; Urine Bilirubin Negative (Negative); Urine Blood Negative (Negative); Urine Color Colorless; Urine Glucose Negative (Negative); Urine Ketones Negative (Negative); Urine Nitrite Negative (Negative); Urine Protein Negative (Negative); Urine Specific Gravity 1.001 (1.010-1.030); Urine Urobilinogen Negative (Negative)
[2019-10-17 18:36] LABS: Urine Benzodiazepine Screen None Detected (None Detect); Urine Opiates Screen None Detected (None Detect)
--- NOTE | 2019-10-17 19:52 | HP ---
HISTORY AND PHYSICAL: ADDENDUM: HOME MEDICATIONS: 1. Aripiprazole 2 mg p.o. at bedtime. 2. Duloxetine 90 mg p.o. daily. 3. Multivitamins/minerals 1 tab p.o. daily. 4. Naproxen 220 to 660 mg p.o. daily p.r.n. ASSESSMENT AND PLAN: The patient will be admitted group home for; 1. Hypertension. The patient is currently not on any medications. We will continue to monitor blood pressure throughout her stay. 2. Hyperlipidemia. The patient is currently not on any medications. Most recent LDL was from 2015 and was 155. We will recheck LDL in the morning. 3. Depression. Continue home duloxetine and aripiprazole. MANOJ CHRISTIE [id number]/[facility] #: [id number] MTDD
--- NOTE | 2019-10-17 20:26 | HP ---
ADDENDUM NOW INCLUDED ON THIS REPORT CC: Dr. Abdi Irby * HISTORY AND PHYSICAL: DATE OF ADMISSION: 10/17/19 PRIMARY CARE PHYSICIAN: Abdi Irby DO. ATTENDING PHYSICIAN: Dr. Rafael Ferraro * (dictated by MANOJ Sesay). CHIEF COMPLAINT: 1. "I'm grumpy." 2. Inability to care for self at home. HISTORY OF PRESENT ILLNESS: Ms. Lara is a 73-year-old female with past medical history of progressing dementia, hypertension, hyperlipidemia, depression, who presented to the ER today accompanied by her daughter. Attempts were made at having conversations with her, but she is tangential and confused and unable to provide an accurate history. Her daughter, Aleyda, is at the bedside and fills in details of the history. Aleyda states that Ms. Lara was diagnosed with dementia in July 2019 and has since been having hallucinations that have progressively worsened and have been worse in the last 2 weeks. The patient lives at home alone and is very confused at times. Her daughter states that 2 nights ago, she was outside her apartment in slippers and felt that she could not go back inside because it was unsafe. She had packed bags that she had left inside. Due to concern for inability to care for herself, her daughter brought her to the ER today. Again, the patient has little insight into why she is here or her condition. In the ER, full workup was done. CBC was within normal limits. Chemistry was unremarkable. Serum alcohol was negative. Urinalysis is pending. Electrocardiogram shows a rate of [address] changes, normal sinus rhythm. PAST MEDICAL HISTORY: 1. Dementia. 2. Hypertension. 3. Hyperlipidemia. 4. Depression. 5. GERD. 6. Fibromyalgia. 7. History of TIA. PAST SURGICAL HISTORY: Left foot, tonsils, inguinal hernia, tubal ligation. HOME MEDICATIONS: 1. Aripiprazole 2 mg p.o. at bedtime. 2. Duloxetine 90 mg p.o. daily. 3. Multivitamins/minerals 1 tab p.o. daily. 4. Naproxen 220 to 660 mg p.o. daily p.r.n. 5. Trazodone 50 mg p.o. at bedtime p.r.n. DRUG ALLERGIES: IODINATED CONTRAST, TETRACYCLINE. FAMILY HISTORY: Father had a history of [place] and from complications due to alcohol use. Mother had a history of cancer, unsure what type of cancer. SOCIAL HISTORY: The patient denies current or former use of tobacco. She does not use alcohol. She lives at home alone. She has 8 children. In the event that she is unable to make her own medical decision, she has appointed her daughters, Aleyda or Shanita, to be her surrogate decision makers. REVIEW OF SYSTEMS: A 14-point review of systems was attempted, although the patient is having difficulty with answering questions and is often times tangential in her speech. PHYSICAL EXAMINATION GENERAL: Ms. Lara is a well-developed, well-nourished, overweight, older white female, who is sitting up in bed. She is frequently tearful and tangential in conversation. HEENT: PERRL. EOMI. Peripheral visual craven are intact. Sclerae are nonicteric without injection. Hearing is grossly intact. Oral mucous membranes are moist. There are no lesions. The pharynx is clear. The tongue is at midline. Palate elevates symmetrically. Trachea is at midline. PULMONARY: Symmetrical chest expansion without the use of accessory muscles. Clear to auscultation bilaterally. No rhonchi, wheeze, or rales. CARDIOVASCULAR: Regular rate and rhythm with S1, S2 present. No murmurs, rubs , clicks, or gallops. There is no JVD or peripheral edema. ABDOMEN: Bowel sounds in all quadrants. Soft and nontender to palpation. MUSCULOSKELETAL: Full range of motion without pain or deformities. NEURO: The patient is awake. She is alert and oriented to self and location, but unsure of date. Cranial nerves II through XII are grossly intact. Muscle strength is 5/5 bilaterally in the upper and lower extremities. DIAGNOSTIC STUDIES/LAB DATA: 1. CBC: WBC 4.6, hemoglobin 13.4, hematocrit 39, MCV 89, platelets 185. 2. CMP: Sodium 141, potassium 3.6, chloride 106, carbon dioxide 28, anion gap 7, BUN 10, creatinine 0.64, glucose 143, TSH 122. 3. Salicylates less than 2.5, serum alcohol less than 10. 4. EKG; rate 92, normal sinus rhythm. No ST changes. ASSESSMENT AND PLAN: Ms. Lara is a 73-year-old female with past medical history of progressing dementia, hypertension, hyperlipidemia, fibromyalgia and depression, who presented to the ER today accompanied by her daughter with complaints of hallucinations and inability to care for herself. She will be admitted for: 1. Inability to care for herself, hallucinations. Per daughter, the patient has been worsening since July 2019 and has been worse in the last 2 weeks. She lives home alone. Her family is no longer able to care for her and therefore are seeking medical attention for plans for placement. Social work has been consulted. We will rule out other causes of encephalopathy. She does not appear to be infected; she is afebrile without leukocytosis. Urinalysis has been ordered. TSH is within normal limits. Urine drug screen will be sent. Screening is negative for salicylates and alcohol. 2. Hypertension. The patient is currently not on any medications. We will continue to monitor blood pressure throughout her stay. 3. Hyperlipidemia. The patient is currently not on any medications. Most recent LDL was from 2015 and was 155. We will recheck LDL in the morning. 4. Fibromyalgia. Not currently on medications at this time. No complaints of pain at this time. 5. Depression. Continue home duloxetine and aripiprazole. 6. DVT prophylaxis: According to DVT Risk Assessment, the patient scores 3 placing her at high risk. She has been started on Lovenox. TIME SPENT: Approximately 60 minutes was spent on this admission, greater than half that time was spent [id number] with the patient obtaining history, performing physical, and reviewing the plan of care. The case has been discussed with my attending, Dr. Ferraro, who is in agreement with the plan of care. MANOJ CHRISTIE
[2019-10-17] MEDS: ARIPiprazole TAB* 2 MG PO SCH (21:05)
[2019-10-17] MEDS: Enoxaparin(*) 40 MG/0.4 ML SYR SUBCUT SCH (21:06)
[2019-10-18] MEDS: DULoxetine DR CAP* 60 MG CAP.DR PO SCH (08:53)
[2019-10-18] MEDS: DULoxetine DR CAP* 30 MG CAP.DR PO SCH (08:53)
[2019-10-18] MEDS: Multivitamins/Minerals TAB PO SCH (08:53)
[2019-10-18] MEDS: Acetaminophen TAB* 325 MG PO PRN ×2 (09:27→20:30)
[2019-10-18] MEDS: ARIPiprazole TAB* 2 MG PO SCH (20:30)
[2019-10-18] MEDS: traZODone TAB* 50 MG TAB PO PRN (20:30)
[2019-10-18] MEDS: Enoxaparin(*) 40 MG/0.4 ML SYR SUBCUT SCH (20:30)
[2019-10-19] MEDS: DULoxetine DR CAP* 60 MG CAP.DR PO SCH (12:38)
[2019-10-19] MEDS: DULoxetine DR CAP* 30 MG CAP.DR PO SCH (12:38)
[2019-10-19] MEDS: Multivitamins/Minerals TAB PO SCH (12:38)
[2019-10-19] MEDS: ARIPiprazole TAB* 2 MG PO SCH (21:36)
[2019-10-19] MEDS: traZODone TAB* 50 MG TAB PO PRN (21:36)
[2019-10-19] MEDS: Enoxaparin(*) 40 MG/0.4 ML SYR SUBCUT SCH (21:36)
[2019-10-20] MEDS: Multivitamins/Minerals TAB PO SCH (09:44)
[2019-10-20] MEDS: DULoxetine DR CAP* 30 MG CAP.DR PO SCH (09:44)
[2019-10-20] MEDS: DULoxetine DR CAP* 60 MG CAP.DR PO SCH (09:44)
[2019-10-20] MEDS: Acetaminophen TAB* 325 MG PO PRN (09:57)
[2019-10-20] MEDS: ARIPiprazole TAB* 2 MG PO SCH (21:02)
[2019-10-20] MEDS: Enoxaparin(*) 40 MG/0.4 ML SYR SUBCUT SCH (21:02)
[2019-10-20] MEDS: traZODone TAB* 50 MG TAB PO PRN (21:02)
[2019-10-21] MEDS: DULoxetine DR CAP* 30 MG CAP.DR PO SCH (11:18)
[2019-10-21] MEDS: Multivitamins/Minerals TAB PO SCH (11:18)
[2019-10-21] MEDS: DULoxetine DR CAP* 60 MG CAP.DR PO SCH (11:18)
--- NOTE | 2019-10-21 12:03 | DS ---
CC: Dr. Abdi Irby * DATE OF ADMISSION: 10/17/2019. DATE OF DISCHARGE: 10/21/2019. PRIMARY CARE PHYSICIAN: Dr. Abdi Irby. ATTENDING PHYSICIAN: Dr. Gurpreet Munguia * (dictated by Laura Winters NP). PRIMARY DIAGNOSIS: Advancing dementia with inability to care for herself. SECONDARY DIAGNOSES: 1. Hypertension. 2. Hyperlipidemia. 3. Depression. 4. GERD. 5. Fibromyalgia. 6. History of TIA. STUDIES DONE WHILE IN THE HOSPITAL: EKG on 10/17/2019 shows normal sinus rhythm with a rate of 92, Q-waves in inferior leads, MN 141, QTC 462. HISTORY OF PRESENT ILLNESS/HOSPITAL COURSE: Ms. Lara is a 73-year-old female with a past medical history of dementia, hypertension, hyperlipidemia, depression, GERD, and fibromyalgia who presented to the emergency room on 2019 when she was unable to care for herself at home. Please see the history and physical by MANOJ Sesay for a complete summary of the events leading up to this hospitalization. In short, the patient was recently diagnosed with dementia in July 2019 and has had significant decline since then. She has had worsening hallucinations and was very confused at times. She was living at home and so she was unable to care for herself. Out of concern, her daughter brought her into the emergency room. In the emergency room, there were no acute findings. She was admitted for nursing home care. The patient has remained in the hospital over the weekend. She has been pleasant and cooperative and was very talkative with staff. There has been no acute medical concerns. Vitals have remained stable. PHYSICAL EXAMINATION: On exam, she reports feeling well and offers no complaints. She is alert and oriented to self and was able to tell me that she is in a building where one would go if they were sick, but was unable to come up with the [facility]. There are no focal neurological deficits. The heart is a regular rate and rhythm without murmurs, rubs, or gallops. Lungs are clear to auscultation without rhonchi, wheezes, or rubs. Abdomen was soft, nontender. There is no edema. Physical exam is otherwise benign. Ms. Lara is stable for discharge. Most recent vitals are as follows: Temperature 96.5, heart rate 78, respiratory rate 16, oxygen saturation 94 percent on room air, blood pressure 111/69. MEDICATIONS: Continued: 1. Abilify 2 mg p.o. at bedtime. 2. Duloxetine 90 mg p.o. daily. 3. Multivitamin one tab p.o. daily. 4. Trazodone 50 mg p.o. at bedtime prn sleep. 5. Naproxen 220 to 660 mg p.o. daily prn pain. DISCHARGE PLAN: Ms. Lara will be discharged to a retirement facility. Medications as noted above. The patient can continue her usual medications that she was taking prior to admission to the hospital and I have not made any changes. She will need to follow-up with her provider upon arrival to the shelter. ACTIVITY: As tolerated. The patient is able to ambulate independently without assistance. DIET: Regular, as tolerated. She should return to the emergency room or nearest hospital for any worsening of symptoms, shortness of breath, lightheadedness, dizziness, chest discomfort, high fevers, chills, night sweats, loss of consciousness or any other worrisome signs or symptoms. CONDITION ON DISCHARGE: Stable. DISCHARGE DISPOSITION: assisted facility, [facility]. This is a summarized report of a complex medical history and hospital stay. For further details, please see the entire medical record. TIME SPENT: Approximately 35 minutes were spent on this discharge. LAURA WINTERS NP [id number]/[facility] #: [id number] ELISA
[2019-10-21 12:13] VITALS: BP 139/78
== END 2019-10-21 14:15 | DRG 884 ==
LOC: ED 14:15 → MED 17:46 → UNDODISIN 10-18 14:45 → MED 10-18 14:52
PROVIDERS: ADMIT Internal Medicine; ATTEND Internal Medicine
DX: F03.90 Unspecified dementia, unspecified severity, without behavioral disturbance, psychotic disturbance, mood disturbance, and anxiety (principal); I10 Essential (primary) hypertension; E78.5 Hyperlipidemia, unspecified; F32.9 Major depressive disorder, single episode, unspecified; K21.9 Gastro-esophageal reflux disease without esophagitis; M79.7 Fibromyalgia; Z74.1 Need for assistance with personal care; Z86.73 Personal history of transient ischemic attack (TIA), and cerebral infarction without residual deficits; Z79.899 Other long term (current) drug therapy; Z88.8 Allergy status to other drugs, medicaments and biological substances; Z91.041 Radiographic dye allergy status; Z82.49 Family history of ischemic heart disease and other diseases of the circulatory system; Z81.1 Family history of alcohol abuse and dependence; Z80.9 Family history of malignant neoplasm, unspecified
CPT/HCPCS: 36415; 80053; 80307; 80320; 80329; 81003; 82607; 84443; 85025; 93005; 99284; A9270-GY; G0480; J1650

== ENCOUNTER 2019-11-06 17:22 | Emergency (ER) | payer MEDICARE, MEDICAID ==
[2019-11-06] MEDS ORDERED: Tetan/Diph/Pertus SYR(Tdap)* 0.5 ML SYR(BOOSTRIX) use SYR contains LATEX IM ONE (17:31)
--- NOTE | 2019-11-06 17:34 | ED ---
Head Injury - HPI Summary HPI Summary: The patient is a 73-year-old female arriving via ambulance to [facility] with a chief complaint of head injury after a mechanical fall immediately prior to arrival. She reports that she was in the parking lot at [facility], and she had spun around to see a staff member when she tripped and fell. She hit the left side of her head near the eyebrow. Bleeding controlled with a dressing applied by nursing staff at her residential facility. She denies any loss of consciousness or abdominal pain. She is not in any pain now. She is not currently on blood thinners. Unsure if up-to-date on tetanus. Blood glucose en route was 65, no history of diabetes. Past medical history significant for unspecified dementia with behavioral disturbance, hypertension, hyperlipidemia, fibromyalgia, TIA, GERD, hallucinations, depressive disorder. Nonsmoker, no alcohol use, no substance use. Medications reviewed. Allergies noted. - History Of Current Complaint Stated Complaint: FALL Hx Obtained From: Patient, EMS Mechanism Of Injury: Fall From A Standing Position Onset/Duration: Started Minutes Ago, Still Present Severity Currently: Moderate Severity Initially: Mild Pain Intensity: 0 Pain Scale Used: 0-10 Numeric Location of Head Injury: Frontal - left eyebrow Aggravating Factor(s): Other: - nothing Alleviating Factor(s): Other: - dressing applied Associated Signs And Symptoms: Other: - Negative: LOC, abdominal pain - Allergies/Home Medications Allergies/Adverse Reactions: Allergies Allergy/AdvReac Type Severity Reaction Status Date / Time Iodinated Contrast Media Allergy Unknown Verified 10/17/19 14:24 Reaction Details Tetracyclines Allergy Unknown Verified 10/17/19 14:24 Reaction Details Home Medications: Home Medications ARIPiprazole TAB* [Abilify 2 MG TAB*] 2 mg PO BEDTIME 10/17/19 [History Confirmed 11/06/19] DULoxetine DR CAP* [Cymbalta CAP*] 60 mg PO DAILY 10/17/19 [History Confirmed ] Donepezil TAB* [Aricept 5 MG TAB*] 5 mg PO QPM 11/06/19 [History Confirmed 11/05] Melatonin 5 mg PO BEDTIME 11/06/19 [History Confirmed 11/06/19] PMH/Surg Hx/FS Hx/Imm Hx Endocrine/Hematology History: Denies: Hx Diabetes Cardiovascular History: Reports: Hx Hypercholesterolemia, Hx Hypertension Respiratory History: Reports: Hx Seasonal Allergies - Severe environmental allergies GI History: Reports: Hx Gastroesophageal Reflux Disease, Other GI Disorders - inguinal hernia repair Musculoskeletal History: Reports: Hx Fibromyalgia Sensory History: Denies: Hx Contacts or Glasses, Hx Hearing Aid Opthamlomology History: Denies: Hx Contacts or Glasses Neurological History: Reports: Hx Dementia - unspecified dementia with behavioral disturbance, Hx Transient Ischemic Attacks (TIA) Psychiatric History: Reports: Hx Attention Deficit Hyperactivity Disorder, Hx Depression, Other Psychiatric Issues/Disorders - hallucinations - Cancer History Hx Chemotherapy: No Hx Radiation Therapy: No - Surgical History Surgical History: Yes Surgery Procedure, Year, and Place: Left foot surgery, tonsillectomy, inguinal hernia repair/TUBIAL LIGATION - Family History Known Family History: Negative: Diabetes - Social History Alcohol Use: None Hx Substance Use: No Substance Use Type: Reports: None Hx Tobacco Use: No Smoking Status (MU): Never Smoked Tobacco Review of Systems Negative: Abdominal Pain Positive: Other - laceration to left eyebrow Neurological/Mental Status: Other - Negative: loss of consciousness All Other Systems Reviewed And Are Negative: Yes Physical Exam - Summary Physical Exam Summary: VITAL SIGNS: Reviewed. GENERAL: Patient is a well-developed and nourished female who is lying comfortable in the stretcher. Patient is not in any acute respiratory distress. HEAD AND FACE: 1.5cm laceration to the left eyebrow. No ecchymosis, hematomas or skull depressions. No sinus tenderness. EYES: PERRLA, EOMI x 2, No injected conjunctiva, no nystagmus. EARS: Hearing grossly intact. Ear canals and tympanic membranes are within normal limits. MOUTH: Oropharynx within normal limits. NECK: Supple, trachea is midline, no adenopathy, no JVD, no carotid bruit, no c- spine tenderness, neck with full ROM. CHEST: Symmetric, no tenderness at palpation. LUNGS: Clear to auscultation bilaterally. No wheezing or crackles. CVS: Regular rate and rhythm, S1 and S2 present, no murmurs or gallops appreciated. ABDOMEN: Soft, non-tender. No signs of distention. No rebound, no guarding, and no masses palpated. Bowel sounds are normal. EXTREMITIES: FROM in all major joints, no edema, no cyanosis or clubbing. NEURO: Alert and oriented x 3. No acute neurological deficits. Speech is normal and follows commands. SKIN: Dry and warm. GCS: 15. Triage Information Reviewed: Yes Vital Signs Reviewed: Yes - [place] Coma Scale Best Eye Response: 4 - Spontaneous Best Motor Response: 6 - Obeys Commands Best Verbal Response: 5 - Oriented Coma Scale Total: 15 Procedures - Sedation Patient Received Moderate/Deep Sedation with Procedure: No - Laceration/Wound Repair 1 Location: face - left eyebrow Description: Linear Anesthesia: 2.0%, Lido, Epi Length, Depth and Shape: 1.5cm Suture Type: Nylon - 5-0 Number of Sutures: 5 - no blood loss Diagnostics - Laboratory Lab Statement: Any lab studies that have been ordered have been reviewed, and results considered in the medical decision making process. - CT Brain CT CT Interpretation Completed By: Radiologist Summary of CT Findings: Impression: 1. No acute findings. 2. Degenerative change , most pronounced at C5/C6. Dr. Sanders has reviewed this report. Cervical Spine CT CT Interpretation Completed By: Radiologist Summary of CT Findings: Impression: 1. No acute intracranial findings. Age- related atrophy and chronic white matter ischemic change. 2. Suspect left orbital floor fracture with layering high density fluid, consistent with hemorrhage, in visualized portions of left maxillary sinus. Recommend maxillofacial CT to further assess. 3. Left supraorbital skin laceration. Dr. Sanders has reviewed this report. Maxillofacial CT CT Interpretation Completed By: Radiologist Summary of CT Findings: Impression: 1. Mildly displaced left orbital floor fracture. No evidence of entrapment. 2. Layering hemorrhage and clot in left maxillary sinus. 3. Left supraorbital skin laceration. Dr. Sanders has reviewed this report. - EKG 1838 Cardiac Rate: NL - 76 BPM EKG Rhythm: Sinus Rhythm EKG Comparison: No Significant Change - Similar to 10/17/19 Summary of EKG Findings: An EKG at 1838 reveals normal sinus rhythm at [address] elevations. Similar to previous from 10/17/2019. Dr. Sanders has reviewed and interpreted this EKG. Re-Evaluation - Re-Evaluation First Eval Re-Evaluation Time: 21:15 Comment: We discussed results and plan for dishcarge with ophthalmology follow up. Head Injury Course/Dx Assessment/Plan: The patient is a 73-year-old female arriving via ambulance to [facility] with a chief complaint of head injury after a mechanical fall immediately prior to arrival. She reports that she was in the parking lot at [facility], and she had spun around to see a staff member when she tripped and fell. She hit the left side of her head near the eyebrow. Bleeding controlled with a dressing applied by nursing staff at her residential facility. She denies any loss of consciousness or abdominal pain. She is not in any pain now. She is not currently on blood thinners. Unsure if up-to-date on tetanus. Blood glucose en route was 65, no history of diabetes. Past medical history significant for unspecified dementia with behavioral disturbance, hypertension, hyperlipidemia, fibromyalgia, TIA, GERD, hallucinations, depressive disorder. Nonsmoker, no alcohol use, no substance use. Medications reviewed. Allergies noted. Maxillofacial CT Impression: 1. Mildly displaced left orbital floor fracture. No evidence of entrapment. 2. Layering hemorrhage and clot in left maxillary sinus. 3. Left supraorbital skin laceration. Head CT Impression: 1. No acute intracranial findings. Age-related atrophy and chronic white matter ischemic change. 2. Suspect left orbital floor fracture with layering high density fluid, consistent with hemorrhage, in visualized portions of left maxillary sinus. Recommend maxillofacial CT to further assess. 3. Left supraorbital skin laceration. C spine CT Impression: 1. No acute findings. 2. Degenerative change, most pronounced at C5/C6. Laceration was repaired. The patient will be discharged to follow-up with Dr. Gimenez from ophthalmology. Patient is hemodynamically stable. - Diagnoses Provider Diagnoses: Head contusion, Orbital floor fracture Discharge ED - Sign-Out/Discharge Documenting (check all that apply): Patient Departure - Patient will be discharged home. - Discharge Plan Condition: Stable Disposition: HOME Patient Education Materials: Care For Your Stitches (DC), Facial Fracture (ED) , Facial Laceration (ED) Referrals: Deyvi Gimenez MD [Medical Doctor] - 1 Day Abdi Irby DO [Doctor of Osteopathy] - 3 Days Additional Instructions: Follow up with Dr. Gimenez from ophthalmology. Follow up with your primary care provider in 2-3 days. Return to the emergency department for any new or worsening symptoms. - Billing Disposition and Condition Condition: STABLE Disposition: Home - Attestation Statements Document Initiated by Scribe: Yes Documenting Scribe: Elaine Alcala Provider For Whom Juan Carlosibconor is Documenting (Include Credential): Dr. Jose Sanders MD Scribe Attestation: I, Elaine Alcala, scribed for Dr. Jose Sanders MD on 11/09/19 at 1744. Scribe Documentation Reviewed: Yes Provider Attestation: The documentation as recorded by the luan, Elaine Alcala accurately reflects the service I personally performed and the decisions made by me, Dr. Jose Sanders MD Status of Scribe Document: Viewed
[2019-11-06] MEDS ORDERED: Lidocaine 2% w/ EPI 1:200,000* 20 ML SDV VIAL ONE (20:12)
[2019-11-06 22:16] VITALS: BP 149/87
== END 2019-11-06 22:10 | disposition home or self-care (01) ==
LOC: ED 17:22
DX: S01.112A Laceration without foreign body of left eyelid and periocular area, initial encounter (principal); S02.30XA Fracture of orbital floor, unspecified side, initial encounter for closed fracture; S09.90XA Unspecified injury of head, initial encounter; E78.00 Pure hypercholesterolemia, unspecified; I10 Essential (primary) hypertension; K21.9 Gastro-esophageal reflux disease without esophagitis; F32.9 Major depressive disorder, single episode, unspecified; R44.3 Hallucinations, unspecified; W19.XXXA Unspecified fall, initial encounter; Y92.9 Unspecified place or not applicable
CPT/HCPCS: 12011; 70450; 70486; 72125; 90471; 90715; 93005; 99283